=== PATIENT | male | born 1985 | race Asian ===

== ENCOUNTER → 2019-01-27 | Outpatient (CLI) | payer OTHER ==
--- NOTE | 2019-01-27 19:02 | Diagnostic Imaging Report ---
Exam: Left foot series, 3 views. Clinical History: Left foot pain today, no trauma Comparison: None. Findings: 3 views of the left foot. There is normal/increased/decreased bone mineralization. Negative for acute, displaced fracture or dislocation. Joint spaces are preserved. No soft tissue swelling. Impression: 1. Unremarkable left foot series. Signed by: Dr. Amrit Storm M.D. on 01/27/2019 6:59 PM
== END ==
LOC: RAD 17:23
PROVIDERS: ATTEND Family Medicine
DX: M79.672 Pain in left foot (principal)